=== PATIENT | female | born 1980 | race Caucasian/White ===

== ENCOUNTER 2024-05-17 13:51 | Emergency (ER) | payer OTHER ==
[~2024-05-17] VITALS: Ht 170.2 cm; Wt 77.1 kg
[2024-05-17 14:12] VITALS: BP 122/79; TEMP 98.4
[2024-05-17] MEDS ORDERED: CLIN300C12 PO (14:52)
[2024-05-17] MEDS ORDERED: FLUC150T PO (14:52)
[2024-05-17 14:56] VITALS: O2SAT 99
== END 2024-05-17 14:57 | disposition home or self-care (01) ==
LOC: ER 14:04
DX: L03.811 Cellulitis of head [any part, except face] (principal); F15.10 Other stimulant abuse, uncomplicated

== ENCOUNTER 2024-08-06 09:55 | Emergency (ER) | payer OTHER ==
[~2024-08-06] VITALS: Ht 170.2 cm; Wt 77.1 kg
[~2024-08-06 09:55] MED LIST: CLIN300C12 PO; FLUC150T PO
[2024-08-06] MEDS ORDERED: LIDOCAINE 1%-EPI 1:100,000 20 ML VIAL ONE (10:43)
[2024-08-06] MEDS: LIDOCAINE 2%-EPI 1:100,000 30 ML VIAL TP ONE (10:45)
[2024-08-06 11:06] VITALS: BP 130/90; TEMP 98.1; O2SAT 99
== END 2024-08-06 11:06 | disposition home or self-care (01) ==
LOC: ER 10:01
DX: S81.811A Laceration without foreign body, right lower leg, initial encounter (principal); W25.XXXA Contact with sharp glass, initial encounter; Y93.89 Activity, other specified; Y92.098 Other place in other non-institutional residence as the place of occurrence of the external cause; Y99.8 Other external cause status
CPT/HCPCS: 12002; 99282; A6403; J3490

== ENCOUNTER 2025-01-01 01:37 | Emergency (ER) | payer OTHER | END 2025-01-01 01:59 | disposition left against medical advice (07) | LOC: ER 01:43 | DX: R07.81 Pleurodynia (principal); Z53.21 Procedure and treatment not carried out due to patient leaving prior to being seen by health care provider ==

== ENCOUNTER 2025-01-01 09:29 | Emergency (ER) | payer OTHER ==
[~2025-01-01] VITALS: Ht 170.2 cm; Wt 79.4 kg
[2025-01-01 10:39] LABS: BASOPHILS % (AUTO) 0.2 % (0.0-2.0); EOSINOPHILS # (AUTO) 0.1 K/uL (0.0-0.7); EOSINOPHILS % (AUTO) 1.3 % (0.0-6.0); HEMATOCRIT 39 % (33-45); LYMPHOCYTES % (AUTO) 20.4 % (20.0-44.0); MEAN CORPUSCULAR HEMOGLOBIN 28 PG (26.0-33.0); MEAN CORPUSCULAR HGB CONC 33 g/dl (31.0-36.0); MEAN CORPUSCULAR VOLUME 83 fL (82-100); MONOCYTES % (AUTO) 10.6 % (2.0-12.0); NEUTROPHILS # (AUTO) 6.4 K/uL (1.8-8.9); NEUTROPHILS % (AUTO) 67.5 % (43.0-81.0); PLATELET COUNT (AUTO) 349 K/uL (150-450); RED BLOOD CELL COUNT(AUTO) 4.71 MIL/uL (4.0-5.2); RED CELL DISTRIBUTION WIDTH 14.7 % (11.5-15.0); WHITE BLOOD COUNT (AUTO) 9.5 K/uL (4.3-11.0)
[2025-01-01 10:42] LABS: APPEARANCE,URINE CLEAR (CLEAR); BILIRUBIN,URINE NEGATIVE (NEGATIVE); BLOOD, URINE NEGATIVE Ery/uL (NEGATIVE); COLOR,URINE YELLOW (YELLOW); KETONES,URINE NEGATIVE (NEGATIVE); LEUKOCYTE ESTERASE ,URINE NEGATIVE (NEGATIVE); NITRITE, URINE NEGATIVE (NEGATIVE); PREGNANCY TEST URINE QUAL NEGATIVE (NEGATIVE); PROTEIN,URINE NEGATIVE (NEGATIVE); UGLUCOSE NEGATIVE (NEGATIVE); UROBILINOGEN,URINE 0.2 EU/dL (0.2)
[2025-01-01 10:49] LABS: CALCIUM, SERUM 8.5 mg/dL (8.5-10.1); CREATININE 0.8 mg/dL (0.6-1.3); POTASSIUM 4.2 mmol/L (3.5-5.1)
[2025-01-01 10:54] LABS: ALBUMIN 3.7 g/dL (3.4-5.0); BILIRUBIN,DIRECT 0.1 mg/dL (0.0-0.2); BILIRUBIN,TOTAL 0.4 mg/dL (0.2-1.0); TOTAL PROTEIN, SERUM 7.5 g/dL (6.4-8.2)
[2025-01-01 11:46] VITALS: BP 136/88; TEMP 98.6; O2SAT 99
== END 2025-01-01 11:47 | disposition home or self-care (01) ==
LOC: ER 09:32
DX: K80.20 Calculus of gallbladder without cholecystitis without obstruction (principal)
CPT/HCPCS: 36415; 76705-TC; 80048-TC; 80076-TC; 83690-TC; 84702-TC; 84703-TC; 85025-TC; 87086-TC

== ENCOUNTER 2025-02-05 23:08 | Emergency (ER) | payer OTHER | END 2025-02-06 01:48 | disposition left against medical advice (07) | LOC: ER 23:14 | DX: R06.02 Shortness of breath (principal); R07.9 Chest pain, unspecified; Z53.21 Procedure and treatment not carried out due to patient leaving prior to being seen by health care provider ==

== ENCOUNTER 2025-03-22 17:34 | Emergency (ER) | payer OTHER ==
[~2025-03-22] VITALS: Ht 170.2 cm; Wt 77.1 kg
[2025-03-22 17:44] VITALS: TEMP 98.1
[2025-03-22] MEDS ORDERED: LIDOCAINE 1%-EPI 1:100,000 20 ML VIAL ONE (18:22)
[2025-03-22] MEDS: TDAP [DIPH/PERTUSSIS/TET] 0.5 ML VIAL IM ONE (18:23)
[2025-03-22] MEDS ORDERED: TDAP [DIPH/PERTUSSIS/TET] 0.5 ML VIAL IM ONE (18:26)
[2025-03-22] MEDS: BACITRACIN ZINC OINT PACKET 1 EA PACKET TP ONE (18:30)
[2025-03-22] MEDS: LIDOCAINE 1%-EPI 1:100,000 50 ML VIAL IJ ONE (18:30)
[2025-03-22] MEDS ORDERED: ACETAMINOPHEN ES 500 MG TABLET ONE (18:50)
[2025-03-22] MEDS: ACETAMINOPHEN ES 500 MG TABLET PO ONE (18:50)
[2025-03-22 19:00] VITALS: BP 130/85; O2SAT 99
== END 2025-03-22 18:53 | disposition home or self-care (01) ==
LOC: ER 17:38
DX: S81.811A Laceration without foreign body, right lower leg, initial encounter (principal); F17.200 Nicotine dependence, unspecified, uncomplicated; Z79.899 Other long term (current) drug therapy; W25.XXXA Contact with sharp glass, initial encounter; Y93.89 Activity, other specified; Y92.89 Other specified places as the place of occurrence of the external cause; Y99.8 Other external cause status
CPT/HCPCS: 12002; 73590; 90471; 90715; 99283; A6403; J3490

== ENCOUNTER 2025-04-07 09:00 | Emergency (ER) | payer OTHER ==
[~2025-04-07] VITALS: Ht 167.6 cm; Wt 77.1 kg
[2025-04-07 09:49] VITALS: BP 132/88; TEMP 98.5; O2SAT 98
== END 2025-04-07 09:50 | disposition home or self-care (01) ==
LOC: ER 09:07
DX: S81.811D Laceration without foreign body, right lower leg, subsequent encounter (principal); N94.89 Other specified conditions associated with female genital organs and menstrual cycle; F17.200 Nicotine dependence, unspecified, uncomplicated; Z48.02 Encounter for removal of sutures; X58.XXXD Exposure to other specified factors, subsequent encounter

== ENCOUNTER 2025-05-09 16:56 | Emergency (ER) | payer OTHER ==
[~2025-05-09] VITALS: Ht 167.6 cm; Wt 77.1 kg
[2025-05-09 17:01] VITALS: BP 125/81; TEMP 98.2
[2025-05-09 17:54] VITALS: O2SAT 97
== END 2025-05-09 17:54 | disposition home or self-care (01) ==
LOC: ER 16:56
DX: S01.81XD Laceration without foreign body of other part of head, subsequent encounter (principal); F17.200 Nicotine dependence, unspecified, uncomplicated; Z48.02 Encounter for removal of sutures; Z79.899 Other long term (current) drug therapy; X58.XXXD Exposure to other specified factors, subsequent encounter